=== PATIENT | male | born 1935 | race Caucasian/White ===

== ENCOUNTER 2016-10-19 23:56 | Observation (INO) | payer MEDICARE, BC ==
[2016-10-20] MEDS ORDERED: Diltiazem IV* 5 MG/ML 5 ML VIAL (for loading dose/IV Push) (25 MG) IV SLOW PU ONE (00:28)
[2016-10-20 00:50] LABS: Albumin 3.9 g/dL (3.2-5.2); BUN/Creatinine Ratio 18.5 (8-20); Calcium 8.6 mg/dL (8.6-10.3); EGFR African American 64.9 (>60); EGFR Non-African American 50.5 (>60); Globulin 3.1 g/dL (2-4); Potassium 4.1 mmol/L (3.5-5.0); Total Bilirubin 0.3 mg/dL (0.2-1.0)
[2016-10-20 00:53] LABS: Troponin I 0.02 ng/mL (<0.04)
[2016-10-20 01:03] LABS: Hematocrit 39 % (42-52); Hemoglobin 12.8 g/dl (14.0-18.0); Mean Corpuscular HGB Conc 33 g/dl (31-36); Mean Corpuscular Hemoglobin 30 pg (27-31); Mean Corpuscular Volume 92 fL (80-94); Mean Platelet Volume 8 um3 (7.4-10.4); Red Blood Count 4.23 10^6/ul (4.0-5.4); Red Cell Distribution Width 15 % (10.5-15); White Blood Count 8.2 10^3/ul (3.5-10.8)
[2016-10-20 01:21] LABS: TSH (Thyroid Stimulating Horm) 1.38 mcIU/mL (0.34-5.60)
--- NOTE | 2016-10-20 01:25 | ED ---
Jenaro Brownlee Rebecca, scribed for Gabby Subramanianuel on 10/20/16 at 0025 . Palpitations / Dysrhythmia - HPI Summary HPI Summary: Pt is an 81 y/o M who presents to ED c/o palpitations. Sx began suddenly at 2099 and have been constant since onset with mild palpitations characterized as irregular. Sx aggravated by exertion, alleviated by rest. Additionally c/o diaphoresis and oscillating BP, stating that it has been between 55 and 125 ( systolic). Denies CP, SOB, edema, syncope. Confirms incidences of prior similar episodes. Is on blood thinners. - History of Current Complaint Chief Complaint: EDDysrhythmPalp Time Seen by Provider: 10/20/16 00:11 Hx Obtained From: Patient Onset/Duration: Gradual Onset - 2099, Still Present Timing: Constant Severity Initially: Mild Severity Currently: Mild Character: Irregular Aggravating: Exertion Alleviating: Rest Associated Signs & Symptoms: Diaphoresis Related History: Similar Episode/Dx as - Prior similar episodes - Allergy/Home Medications Allergies/Adverse Reactions: Allergies Allergy/AdvReac Type Severity Reaction Status Date / Time crab Allergy Mild Rash Uncoded 10/20/16 00:01 PMH/Surg Hx/FS Hx/Imm Hx Endocrine/Hematology History: Reports: Hx Anticoagulant Therapy Denies: Hx Diabetes, Hx Thyroid Disease Cardiovascular History: Reports: Hx Aneurysm, Hx Hypercholesterolemia, Hx Hypertension, Hx Myocardial Infarction - [place] 1988 Denies: Hx Congestive Heart Failure, Hx Deep Vein Thrombosis, Hx Pacemaker/ ICD Respiratory History: Denies: Hx Asthma, Hx Chronic Obstructive Pulmonary Disease (COPD), Hx Lung Cancer GI History: Denies: Hx Gall Bladder Disease, Hx Gastrointestinal Bleed, Hx Ulcer, Hx Urosepsis History: Reports: Hx Renal Disease - Kidney cancer (removed a "very tiny part of his kidney" at the [facility], Other Problems/Disorders - renal carcinoma,2012 Denies: Hx Kidney Stones Sensory History: Reports: Hx Hearing Aid - COCHLEAR IMPLANT Neurological History: Reports: Hx Transient Ischemic Attacks (TIA) - Possible TIA., Other Neuro Impairments/Disorders - TIA 04/19/13 Denies: Hx Dementia, Hx Seizures Psychiatric History: Reports: Hx Anxiety - He is taking Wellbutrin. Denies: Hx Depression, Hx Panic Disorder, Hx Schizophrenia, Hx Bipolar Disorder, Hx Substance Abuse - Cancer History Cancer Type, Location and Year: cancer left kidney cancer - Surgical History Surgery Procedure, Year, and Place: 2011 [facility] 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 12/10/2014COCHLEAR IMPLANT- NUCLEUS FREEDOM MODEL# [id number], CHECKED WITH DR ODOM, IMPLANT NOT SAFE TO SCAN ON ANY OF OUR SCANNERS Infectious Disease History: Denies: Hx Hepatitis, Hx Human Immunodeficiency Virus (HIV), Traveled Outside the [place] in Last 30 Days - Family History Known Family History: Positive: Cardiac Disease - Social History Alcohol Use: Rare Substance Use Type: Reports: None Hx Tobacco Use: Yes Smoking Status (MU): Former Smoker Review of Systems Positive: Skin Diaphoresis, Other - Oscillating BP Positive: Palpitations. Negative: Chest Pain Negative: Shortness Of Breath Negative: Edema Negative: Syncope All Other Systems Reviewed And Are Negative: Yes Physical Exam - Summary Physical Exam Summary: Appearance: Well appearing, no pain distress Skin: warm, dry, reflects adequate perfusion Head/face: normal Eyes: EOMI, ANN MARIE ENT: normal Neck: supple, nontender Resp: CTA, breath sounds present Cardio: Pulses symm, heart rate is irregularly regular with tachycardia Musc: normal, strength/ROM intact Neuro: normal, sensory motor intact, A&Ox3 Triage Information Reviewed: Yes Vital Signs On Initial Exam: Initial Vitals Temp Pulse Resp BP Pulse Ox 97.5 F 78 18 140/70 100 10/20/16 00:01 10/20/16 00:01 10/20/16 00:01 10/20/16 00:01 10/20/16 00:01 Vital Signs Reviewed: Yes Diagnostics - Vital Signs Vital Signs Temp Pulse Resp BP Pulse Ox 10/20/16 00:01 97.5 F 78 18 140/70 100 - Laboratory Result Diagrams: 10/20/16 00:17 10/20/16 00:17 Lab Statement: Any lab studies that have been ordered have been reviewed, and results considered in the medical decision making process. - Radiology CXR Xray Interpretation: No Acute Changes Radiology Interpretation Completed By: ED Physician - EKG 0008 Cardiac Rate: Tachycardia - 103 bpm EKG Rhythm: Atrial Fibrillation EKG Interpretation: No STEMI Course/Dx - Course Assessment/Plan: Pt is an 81 y/o M who presents to ED c/o irregular palpitations , diaphoresis and oscillating BP since 2100 tonight. Aggravated by exertion, alleviated by rest. Denies edema, CP, SOB, syncope. Prior similar episodes of symptoms. EKG reveals A fib with tachycardia at a rate of 103 bpm. CXR reveals no acute findings. Troponin 0.02. Discussed care of pt with Dr. Coelho, hospitalist, who accepts pt for admission with a Dx of sick sinus syndrome. - Diagnoses Provider Diagnoses: Sick sinus syndrome - Physician Notifications Discussed Care Of Patient With: Dr. Coelho - Hospitalist, accepts pt for admission Time Discussed With Above Provider: 01:15 Discharge - Discharge Plan Condition: Good Disposition: ADMITTED TO [facility] documentation as recorded by the Jenaro hensley Rebecca accurately reflects the service I personally performed and the decisions made by , Jake Subramanian.
--- NOTE | 2016-10-20 05:03 | HP ---
HISTORY AND PHYSICAL: DATE OF ADMISSION: 10/20/16 CHIEF COMPLAINT: Lightheadedness. HISTORY OF PRESENT ILLNESS: The patient is an 81-year-old gentleman who presents to [facility] after stating at 10:30 p.m., he was downstairs in his house when he felt suddenly like he was too weak to get upstairs. He finally got up and walked upstairs, told his he was feeling weak, lightheaded, and had palpitations. His heart rate was 120, apparently he checked and it was down to 50. This had happened before when He has had atrial fibrillation. Used to be on amiodarone and metoprolol, but these were subsequently stopped about a year ago. Apparently, when the patient got here after calling their primary care physician, he was told that his heart rate was down to 40s in triage. He had no chest pain, no shortness of breath. He feels fine now. The symptoms have resolved. He thinks this happens every time he goes into atrial fibrillation. Apparently about 20 years ago, he was told to get a pacemaker here, but there was disagreement between him and the correctional officer at [facility], so he did not get the pacemaker. PAST MEDICAL HISTORY: His past medical history is significant for atrial fibrillation; gout; COPD; hyperlipidemia; coronary artery disease with an NV 30 years ago, status post 2 angioplasties with no stent placement; chronic back pain; and a cochlear implant. CURRENT MEDICATIONS: Include: 1. Vioxx 50 mg as needed. 2. Crestor 10 mg daily. 3. Atrovent inhaler 2 puffs 4 times a day. 4. Pradaxa 150 mg twice a day. 5. Aspirin 81 mg daily. 6. Allopurinol 200 mg daily. ALLERGIES: He has no known drug allergies. FAMILY HISTORY: Reviewed and noncontributory. SOCIAL HISTORY: No tobacco, quit 35 years ago. No alcohol or recreational drug use. 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 He is . His , Michelle Ruelas, is his health care proxy. He has 5 children , one adopted child. REVIEW OF SYSTEMS: A 14-point review of systems was completed with the patient. All pertinent positives and negatives are in the history of present illness, otherwise it is negative. PHYSICAL EXAMINATION GENERAL: A pleasant gentleman, lying in bed, in no acute distress. VITAL SIGNS: Temperature 97.5 degrees, heart rate was 114 and now 71 beats per minute, respiratory rate 16 breaths per minute, pulse ox 100% on room air, and blood pressure 148/64. HEENT: Normocephalic, atraumatic. Pupils are equal, round and reactive to light. Moist mucous membranes. NECK: Supple. No JVD, bruits, or palpable thyroid or lymphadenopathy. CHEST: Chest is clear to auscultation and percussion bilaterally. CARDIOVASCULAR: S1, S2 appreciated. Regular rate and rhythm. ABDOMINAL EXAM: Positive bowel sounds in all 4 quadrants. Soft, nontender, and nondistended. EXTREMITIES: No cyanosis, clubbing, or edema. NEURO: Alert and oriented x3. Hard of hearing. Moves all extremities. SKIN: No rashes or abnormalities. DIAGNOSTIC STUDIES/LAB DATA: Sodium 138, potassium 4.1, chloride 106, CO2 26, BUN 25, creatinine 1.25, and glucose 101. Troponin 0.02. White count 8.2, hemoglobin 12.8, hematocrit 39, and platelets are 216. INR 1.22. EKG shows AFib with a rapid ventricular response at 123 beats per minute. Chest x-ray shows no acute infiltrates. ASSESSMENT AND PLAN: 1. Lightheadedness with atrial fibrillation: Actually on the monitor, it appears that this has resolved and he is back in sinus and he feels fine. We will monitor him overnight. He did not wanted a pacemaker 20 years ago and does not want one now. He may not even require one. If he is stable overnight , he can likely be discharged in the morning. We will check a troponin in the morning as well and I will repeat his EKG. 2. Coronary artery disease: Stable. Continue current treatment. 3. Atrial fibrillation: See above. We will continue Pradaxa as well. 4. Gout: Stable. Continue allopurinol. 5. DVT prophylaxis: He is on Pradaxa. 6. FEN: Regular diet. 7. Code status: The patient is a full code. TIME SPENT: Over 75 minutes was spent on this H and P; more than 40 minutes of which was spent in direct [id number] contact with the patient, evaluation, physical exam, counseling, and coordination of care. CC: Paul Garcia MD* [id number]/[facility] #: [id number] [facility]
--- NOTE | 2016-10-20 07:36 | RAD ---
INDICATION: Short of breath COMPARISON: September 05, 2015 TECHNIQUE: An AP portable view obtained at 0035 hours is submitted. FINDINGS: Bones/Soft Tissues: There are no acute bony findings. Cardiomediastinal: The cardiac silhouette is mildly enlarged. Lungs: There are no infiltrates. Mild hyperinflation Pleura: There are no pleural effusions. Other: None IMPRESSION: MILD HYPERINFLATION ENLARGED CARDIAC SILHOUETTE. NO INFILTRATES.
[2016-10-20] MEDS ORDERED: Spiriva Inhaler DEVICE* 1 EACH DEVICE INH ONE (09:00)
[2016-10-20] MEDS ORDERED: Dabigatran CAP(NF) 150 MG CAP PO SCH (09:00)
[2016-10-20] MEDS ORDERED: Atorvastatin* 20 MG TAB PO SCH (09:00)
[2016-10-20] MEDS ORDERED: Aspirin Low Dose CHEW TAB* 81 MG PO SCH (09:00)
[2016-10-20] MEDS ORDERED: Allopurinol TAB* 300 MG PO SCH (09:00)
[2016-10-20] MEDS ORDERED: Tiotropium CAP.INH* CAP.INH/18 MCG INH SCH (09:00)
[2016-10-20 12:08] VITALS: BP 117/69
[2016-10-20] MEDS ORDERED: CMC: Dabigatran CAP(NF) 150 MG CAP PO SCH (17:00)
--- NOTE | 2016-10-21 00:26 | DS ---
CC: Dr. Garcia DISCHARGE SUMMARY: DATE OF ADMISSION: 10/20/16 DATE OF DISCHARGE: 10/20/16 HISTORY: This 81-year-old man presented with atrial fibrillation with a rapid ventricular rate. He has no palpitations, but at about 10:30 p.m. the evening before admission at home he felt he was to o weak to go upstairs but did manage to get upstairs but felt lightheaded. On the blood pressure cu ff, read out for a heart rate that was quite variable, sometimes very high, sometimes low. The patient has a history of atrial fibrillation in the past. He had been on amiodarone for a time. He had complained of excessive fatigue. Both his amiodarone and metoprolol were stopped. The wif e's feeling is that it was really the metoprolol that was causing his fatigue; however, the amiodaro ne was never restarted. The patient gets his cardiology care at [facility] and was last there in January 2016. The rest of the history is detailed in the dictated note. The patient spontaneously converted to normal sinus rhythm after a few hours in the hospital. He raymond s had some PACs on the monitor after that. He felt quite well. The gave a history of the patient drinking Sake, one or more drinks at dinner before his atrial fibrillation. Normally he drinks 1 glass of wine a day. He does not smoke or use excessive caffei ne. LABORATORY DATA: Unremarkable. Two troponins were normal. His potassium was 4.1. He does have william e chronic kidney disease with a creatinine of 1.35 here. This is actually lower than most recent pr evious values. FINAL DIAGNOSES: 1. Paroxysmal atrial fibrillation. 2. Gout. 3. Chronic obstructive pulmonary disease. 4. Coronary artery disease. 5. Chronic back pain. 6. Cochlear implant. DISCHARGE MEDICATIONS: 1. Aspirin 81 mg daily. 2. Allopurinol 300 mg daily. 3. Dabigatran 150 mg b.i.d. 4. Rosuvastatin 10 mg daily. 5. Sildenafil 50 mg p.r.n. 6. Ipratropium 2 puffs 4 times a day. The patient will arrange to have an appointment at the [facility] for further cardiology care within a week. [id number]/[facility] #: [id number]
== END 2016-10-20 12:48 | disposition home or self-care (01) ==
LOC: ED 23:56 → MEDTELE 10-20 02:25
PROVIDERS: ADMIT Internal Medicine; ATTEND Internal Medicine
DX: I48.0 Paroxysmal atrial fibrillation (principal); M10.9 Gout, unspecified; J44.9 Chronic obstructive pulmonary disease, unspecified; I25.10 Atherosclerotic heart disease of native coronary artery without angina pectoris; M54.9 Dorsalgia, unspecified; G89.29 Other chronic pain; Z79.899 Other long term (current) drug therapy; R53.1 Weakness; R42 Dizziness and giddiness; Z87.891 Personal history of nicotine dependence; Z79.01 Long term (current) use of anticoagulants; I10 Essential (primary) hypertension; I25.2 Old myocardial infarction
CPT/HCPCS: 36415; 71010; 80053; 83605; 83735; 83880; 84443; 84484; 85025; 85610; 85730; 93005; 94640; 99284; A9270-GY; G0378

== ENCOUNTER 2018-08-31 10:07 | Emergency (ER) | payer MEDICARE, BC ==
[2018-08-31 10:17] VITALS: BP 154/64
[2018-08-31] MEDS ORDERED: Benzoin Compound STICK TOPICAL ONE (10:26)
[2018-08-31] MEDS ORDERED: Tetan/Diph/Pertus SYR(Tdap)* 0.5 ML SYR(BOOSTRIX) use SYR IM ONE (10:26)
--- NOTE | 2018-08-31 10:31 | UC ---
Laceration HPI - HPI Summary HPI Summary: 83-year-old male presents with complaints of laceration to his left great toe. States he was getting out of the shower this morning and his foot slipped and he struck his toe on an unknown object causing a laceration. Patient is on Pradaxa but was able to control bleeding with direct pressure prior to arrival. States did not fall or hit his head and denies any other injuries. Tetanus status is unknown. - History Of Current Complaint Chief Complaint: UCLaceration Stated Complaint: TOE LAC Time Seen by Provider: 08/31/18 10:22 Hx Obtained From: Patient Pain Intensity: 0 - Allergies/Home Medications Allergies/Adverse Reactions: Allergies Allergy/AdvReac Type Severity Reaction Status Date / Time crab Allergy Mild Rash Uncoded 08/31/18 10:17 Home Medications: Home Medications PARoxetine HCL TAB* [Paxil TAB*] 1 tab PO DAILY 08/31/18 [History Confirmed ] PMH/Surg Hx/FS Hx/Imm Hx - Additional Past Medical History Additional PMH: Gout Endocrine History: Dyslipidemia Cardiovascular History: Cardiac Disease, Hypertension, Myocardial Infarction Other History Of: Anticoagulant Therapy Negative For: HIV, Hepatitis B, Hepatitis C - Surgical History Surgical History: Yes Surgery Procedure, Year, and Place: 2011 [facility] 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 12/10/2014COCHLEAR IMPLANT- NUCLEUS FREEDOM MODEL# [id number], CHECKED WITH DR ODOM, IMPLANT NOT SAFE TO SCAN ON ANY OF OUR SCANNERS - Family History Known Family History: Positive: Cardiac Disease - Social History Occupation: Retired Lives: With Family Alcohol Use: glass of wine with dinner Substance Use Type: None Smoking Status (MU): Former Smoker - Immunization History Most Recent Influenza Vaccination: THIS SEASON Most Recent Tetanus Shot: unk Most Recent Pneumonia Vaccination: THIS SEASON Review of Systems All Other Systems Reviewed And Are Negative: Yes Constitutional: Negative: Fever, Chills Skin: Positive: Other - See HPI Respiratory: Positive: Negative Cardiovascular: Positive: Negative Gastrointestinal: Positive: Negative Genitourinary: Positive: Negative Motor: Negative: Weakness Neurovascular: Negative: Decreased Sensation Musculoskeletal: Negative: Arthralgia Neurological: Positive: Negative Physical Exam - Summary Physical Exam Summary: GENERAL APPEARANCE: Well developed, well nourished, alert and cooperative, and appears to be in no acute distress. CARDIAC: Normal S1 and S2. No S3, S4 or murmurs. Rhythm is regular. There is no peripheral edema, cyanosis or pallor. Extremities are warm and well perfused. Capillary refill is less than 2 seconds. Peripheral pulses intact. LUNGS: Clear to auscultation without rales, rhonchi, wheezing or diminished breath sounds. ABDOMEN: Positive bowel sounds. Soft, nondistended, nontender. No guarding or rebound. No masses or hepatosplenomegally. MUSKULOSKELETAL: ROM intact to all extremities. No joint erythema or tenderness. Normal muscular development. SKIN: Superficial 1.5 cm linear laceration with a u-shaped flap at the distal end of the laceration to the tip of the left great toe. Triage Information Reviewed: Yes Vital Signs: Initial Vital Signs Temp 98 F 08/31/18 10:13 Pulse 72 08/31/18 10:13 Resp 16 08/31/18 10:13 BP 154/64 08/31/18 10:13 Pulse Ox 99 08/31/18 10:13 Vital Signs Reviewed: Yes Laceration Repair - Laceration Repair 1 Description: Irregular - 1.5 cm linear laceration with a u-shaped flap at the distal end of the laceration Laceration Size After Repair: Length (cm) - 1.5 cm Modified For Repair: No Irrigation With Pressure Irrigation Device: Yes Closure Material: Skin Adhesive, SteriStrips Laceration Course/Dx - Course/Dx Course Of Treatment: 83-year-old male presents with complaints of laceration to his left great toe. States he was getting out of the shower this morning and his foot slipped and he struck his toe on an unknown object causing a laceration. Patient is on Pradaxa but was able to control bleeding with direct pressure prior to arrival. States did not fall or hit his head and denies any other injuries. Tetanus status is unknown. Afebrile. Hypertensive otherwise vital signs stable. Exam was remarkable for a 1.5 cm superficial linear laceration with a U-shaped flap at the distal end of the laceration to the left great toe. The laceration was thoroughly irrigated by the RN. I repaired the laceration using Steri-Strips and a skin adhesive. Dressing was applied by the RN. Wound care, anticipatory guidance, and warning symptoms are reviewed with the patient. Verbalizes understanding and agrees with plan of care. - Differential Dx - Laceration/Wound Differental Diagnoses: Laceration - Diagnosis Provider Diagnosis: Laceration of left great toe Discharge - Sign-Out/Discharge Documenting (check all that apply): Patient Departure All imaging exams completed and their final reports reviewed: No Studies - Discharge Plan Condition: Stable Disposition: HOME Patient Education Materials: Laceration (ED), Skin Adhesive Care (ED), Steristrips (ED) Referrals: Paul Garcia MD [Primary Care Provider] - Additional Instructions: Your laceration was repaired with a combination of skin adhesive and Steri- Strips. The adhesive will slowly wear off over the next several days. Keep the adhesive dry for the next 24 hours. After 24 hours you may shower and wash your hands as ususal. Do not apply any lotions or ointments to the adhesive as this may dissolve the adhesive and cause the wound to reopen. The Steri-Strips will slowly peel up from the ends over the next few days. You may trim the ends as needed but do not pull off or you may reopen the wound. Keep the wound covered with a dressing. Change this at least once a day or anytime the dressing becomes wet or soiled. Take acetaminophen (Tylenol) according to directions as needed for pain. Your tetanus was updated today. Be sure to notify your primary care provider so they can update their records. Watch for signs of infection including fever greater than 100.5 F, severe pain not managed with with pain medicine, redness that spreads, swelling of the finger, pus draining from the wound, or any worsening of symptoms. Seek immediate medical attention if any of these occur. - Billing Disposition and Condition Condition: STABLE Disposition: Home
== END 2018-08-31 11:11 | disposition home or self-care (01) ==
LOC: UCEAST 10:07
DX: S91.112A Laceration without foreign body of left great toe without damage to nail, initial encounter (principal); W22.8XXA Striking against or struck by other objects, initial encounter; Y93.E8 Activity, other personal hygiene; Y92.002 Bathroom of unspecified non-institutional (private) residence as the place of occurrence of the external cause; Z23 Encounter for immunization; E78.5 Hyperlipidemia, unspecified; I25.2 Old myocardial infarction; I11.9 Hypertensive heart disease without heart failure; Z79.02 Long term (current) use of antithrombotics/antiplatelets; Z91.013 Allergy to seafood; Z87.891 Personal history of nicotine dependence
CPT/HCPCS: 12001; 90471; 90715; 99211; G0463

== ENCOUNTER 2018-09-08 08:00 | Emergency (ER) | payer MEDICARE, BC ==
[2018-09-08 08:16] VITALS: BP 142/88
--- NOTE | 2018-09-08 08:32 | UC ---
Truncal Trauma HPI - HPI Summary HPI Summary: 83 yo male presents with right rib pain. He tells me that about a week ago, he fell getting out of the tub and landed on his right side. During this fall he sustained a laceration to his LEFT great toe - prompting a visit to the . At that time he did not have any right side pain or complaints and was more concerned about his toe. His toe wound had steri strips applied and dermabond. has been changing the bandage daily and would like this "checked" today. No pain or drainage from the site. No fevers. Regarding his right ribs - the pain began a few days after that fall and has been persisting since. Pain in the area with taking a deep breath and with truncal/UE movement. Denies SOB or chest pain - History Of Current Complaint Chief Complaint: UCUpperExtremity Stated Complaint: RIB PAIN TOE WOUND Time Seen by Provider: 09/08/18 08:26 Hx Obtained From: Patient Severity Initially: Mild Severity Currently: Severe Pain Intensity: 10 Pain Scale Used: 0-10 Numeric - Allergies/Home Medications Allergies/Adverse Reactions: Allergies Allergy/AdvReac Type Severity Reaction Status Date / Time crab Allergy Mild Rash Uncoded 09/08/18 08:15 Home Medications: Home Medications Ibuprofen TAB* [Advil TAB*] 400 mg PO Q6H PRN 09/08/18 [History Confirmed ] Naproxen Sodium [Aleve] 440 mg PO 09/08/18 [History] PMH/Surg Hx/FS Hx/Imm Hx Endocrine History: Dyslipidemia Cardiovascular History: Cardiac Disease, Hypertension Other History Of: Anticoagulant Therapy Negative For: HIV, Hepatitis B, Hepatitis C - Surgical History Surgical History: Yes Surgery Procedure, Year, and Place: 2011 [facility] 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 12/10/2014COCHLEAR IMPLANT- NUCLEUS FREEDOM MODEL# [id number], CHECKED WITH DR ODOM, IMPLANT NOT SAFE TO SCAN ON ANY OF OUR SCANNERS - Family History Known Family History: Positive: Cardiac Disease - Social History Occupation: Retired Lives: With Family Alcohol Use: Daily Substance Use Type: None Smoking Status (MU): Former Smoker - Immunization History Most Recent Influenza Vaccination: THIS SEASON Most Recent Tetanus Shot: unk Most Recent Pneumonia Vaccination: THIS SEASON Review of Systems All Other Systems Reviewed And Are Negative: Yes Constitutional: Positive: Negative Skin: Positive: Other - Wound left great toe Respiratory: Positive: Negative Cardiovascular: Positive: Negative Gastrointestinal: Positive: Negative Genitourinary: Positive: Negative Neurovascular: Positive: Negative Musculoskeletal: Positive: Other: - Right rib pain Neurological: Positive: Negative Psychological: Positive: Negative Physical Exam - Summary Physical Exam Summary: GENERAL: NAD. WDWN. No pain distress. SKIN: Left great toe: Healing laceration on plantar aspect with dried blood. No erythema, edema, drainage, or warmth. NECK: Supple. Nontender. No lymphadenopathy. CHEST: CTAB. No r/r/w. No accessory muscle use. Breathing comfortably and in no distress. CV: Pulses intact. Cap refill <2seconds ABDOMEN: Soft. NTTP. No CVA tenderness. Bowel sounds present. No ecchymosis MSK: FROM b/l UEs, but pain in right ribs with lifting right arm. TTP at right posterior ~9th rib with faint yellow/purple ecchymosis. NEURO: Alert. PSYCH: Age appropriate behavior. Triage Information Reviewed: Yes Vital Signs: Initial Vital Signs Temp 97.7 F 09/08/18 08:06 Pulse 57 09/08/18 08:06 Resp 18 09/08/18 08:06 BP 142/88 09/08/18 08:06 Pulse Ox 99 09/08/18 08:06 Laboratory Tests 09/08/18 09:08 POC Urine Color Yellow POC Urine Clarity Clear POC Urine pH 5.0 POC Ur Specif [place] 1.025 POC Urine Protein Negative POC Ur Glucose (UA) Negative POC Urine Ketones Negative POC Urine Blood Trace-lysed A POC Urine Nitrite Negative POC Urine Bilirubin Negative POC Urine Urobilinogen 0.2 POC U Leukocyte Esteras Negative Vital Signs Reviewed: Yes Truncal Trauma Course/Dx - Course Course Of Treatment: Regarding his toe wound. The toe was cleansed with normal saline. The wound appears to be healing well and is without any sign of infection. Advised to continue to apply a bandage until fully healed. Regarding his right rib pain. XR: IMPRESSION: No fracture of the right ribs is identified. Discussed results with pt and his . Suspect rib contusion and advised to continue taking tylenol and will rx for a lidocaine patch to use. Advised to f/ u with his PCP for a recheck of his pain next week. - Differential Dx/Diagnosis Provider Diagnosis: Rib contusion, Toe laceration Discharge - Sign-Out/Discharge Documenting (check all that apply): Patient Departure All imaging exams completed and their final reports reviewed: Yes - Discharge Plan Condition: Stable Disposition: HOME Prescriptions: Lidocaine PATCH 5%* [Lidoderm 5% Patch*] 1 patch TRANSDERM DAILY PRN #10 patch PRN Reason: Pain Patient Education Materials: Acute Wound Care (ED), Rib Contusion (ED) Referrals: Paul Garcia MD [Primary Care Provider] - 2 Days Additional Instructions: If you develop a fever, shortness of breath, chest pain, new or worsening symptoms - please call your PCP or go to the ED. Your blood pressure was high at todays visit. Please see your primary provider within 4 weeks for recheck and re-evaluation. 1) Continue to wash and apply a dressing daily to the toe until well healed 2) Use the lidoderm patch as directed for the rib pain 3) I recommend you schedule an appointment with your primary doctor for a recheck of your pain within 1 week. - Billing Disposition and Condition Condition: STABLE Disposition: Home
== END 2018-09-08 09:18 | disposition home or self-care (01) ==
LOC: UCEAST 08:00
DX: S20.20XD Contusion of thorax, unspecified, subsequent encounter (principal); S91.112D Laceration without foreign body of left great toe without damage to nail, subsequent encounter; W19.XXXD Unspecified fall, subsequent encounter; E78.5 Hyperlipidemia, unspecified; I11.9 Hypertensive heart disease without heart failure; Z79.01 Long term (current) use of anticoagulants; Z91.013 Allergy to seafood; Z87.891 Personal history of nicotine dependence
CPT/HCPCS: 81003; 99212; G0463

== ENCOUNTER 2021-02-04 04:56 | Observation (INO) ==
[2021-02-04] MEDS ORDERED: NS 0.9% 1000 ml BAG 1,000 ML IV ONE (08:09)
[2021-02-04 09:00] LABS: Hematocrit 33 % (42-52); Hemoglobin 10.9 g/dL (14.0-18.0); Mean Corpuscular HGB Conc 34 g/dL (31-36); Mean Corpuscular Hemoglobin 32 pg (27-31); Mean Corpuscular Volume 94 fL (80-94); Mean Platelet Volume 8.8 fL (7.4-10.4); Platelet Count 135 10^3/uL (150-450); Red Blood Count 3.48 10^6 /uL (4.18-5.48); Red Cell Distribution Width 16 % (10-15)
[2021-02-04 09:01] LABS: Venous Bicarbonate HCO3 24.7 mmol/L (24-28)
[2021-02-04 09:09] LABS: ABS Basophils 0.1 10^3/ul (0-0.2); ABS Eosinophils 0.1 10^3/ul (0-0.6); ABS Lymphocytes 1.1 10^3/ul (1.0-4.8); ABS Monocytes 0.5 10^3/ul (0-0.8); ABS Neutrophils 7.2 10^3/ul (1.5-7.7); Eosinophil % 1.4 %; Lymphocyte % 12.5 %
[2021-02-04 09:16] LABS: Activated Partial Thrombo Time 56.5 seconds (26.0-38.0); INR 1.53 (0.86-1.15)
[2021-02-04 09:23] LABS: Albumin 3.9 g/dL (3.2-5.2); Albumin/Globulin Ratio 1.3 (1-3); C Reactive Protein 8.37 mg/L (<8.01); Calcium 8.4 mg/dL (8.6-10.3); EGFR African American 56.1 (>60); EGFR Non-African American 46.4 (>60); Globulin 3.1 g/dL (2-4); Potassium 4.6 mmol/L (3.5-5.0); Total Bilirubin 0.7 mg/dL (0.2-1.0); Troponin I 0.01 ng/mL (<0.03)
[2021-02-04 09:24] LABS: Influenza A Molecular Negative (Negative); Influenza B Molecular Negative (Negative)
[2021-02-04 09:44] LABS: Ferritin 35.6 ng/mL (24-336)
[2021-02-04] MEDS ORDERED: cefTRIAXone 1 gm/50 mL NS BAG 1 GM/50 ML BAG IV ONE (10:06)
[2021-02-04] MEDS ORDERED: DOXYcycline 100 MG in NS 0.9% 250 ml 250 ML IVPB ONE (10:07)
[2021-02-04 11:51] LABS: Rapid COVID-19 Molecular Undetected (Undetected)
[2021-02-04] MEDS ORDERED: Azithromycin 500 mg/250 ml NS 500 MG/250 ML BAG IVPB SCH (14:00)
[2021-02-04] MEDS: Dabigatran 150 mg CAP (NF) PO SCH (20:49)
[2021-02-05] MEDS: Dabigatran 150 mg CAP (NF) PO SCH (09:08)
[2021-02-05 09:33] VITALS: BP 126/85
[2021-02-05 10:45] LABS: ABS Eosinophils 0.2 10^3/ul (0-0.6); ABS Lymphocytes 1.2 10^3/ul (1.0-4.8); ABS Monocytes 0.5 10^3/ul (0-0.8); ABS Neutrophils 4.4 10^3/ul (1.5-7.7); Eosinophil % 3.7 %; Hematocrit 32 % (42-52); Hemoglobin 10.7 g/dL (14.0-18.0); Lymphocyte % 18.4 %; Mean Corpuscular HGB Conc 33 g/dL (31-36); Mean Corpuscular Hemoglobin 31 pg (27-31); Mean Corpuscular Volume 95 fL (80-94); Mean Platelet Volume 8.4 fL (7.4-10.4); Platelet Count 119 10^3/uL (150-450); Red Blood Count 3.39 10^6 /uL (4.18-5.48); Red Cell Distribution Width 17 % (10-15); White Blood Count 6.4 10^3/uL (3.5-10.8)
[2021-02-05] MEDS ORDERED: cefTRIAXone 1 gm/50 mL NS BAG 1 GM/50 ML BAG IVPB SCH (11:00)
[2021-02-05 11:07] LABS: Calcium 8.6 mg/dL (8.6-10.3); EGFR African American 56.6 (>60); EGFR Non-African American 46.8 (>60); Potassium 4.2 mmol/L (3.5-5.0)
== END 2021-02-05 14:50 | disposition home or self-care (01) ==
LOC: MED 04:56 → ED 04:56 → MED 15:15
PROVIDERS: ADMIT Internal Medicine; ATTEND Internal Medicine

== ENCOUNTER 2021-11-02 20:22 | Inpatient (IN) ==
[2021-11-02] MEDS ORDERED: Lactated Ringers 1000 ml BAG 1,000 ML IV ONE (21:52)
[2021-11-02] MEDS ORDERED: Cefepime 2 GM in Dextrose 2 GM/50 ML BAG IV ONE (21:59)
[2021-11-02 22:12] LABS: ABS Eosinophils 0.2 10^3/ul (0-0.6); ABS Lymphocytes 0.9 10^3/ul (1.0-4.8); ABS Monocytes 0.5 10^3/ul (0-0.8); ABS Neutrophils 8.1 10^3/ul (1.5-7.7); Eosinophil % 1.9 %; Hematocrit 35 % (42-52); Hemoglobin 11.1 g/dL (14.0-18.0); Mean Corpuscular HGB Conc 32 g/dL (31-36); Mean Corpuscular Hemoglobin 30 pg (27-31); Mean Corpuscular Volume 92 fL (80-94); Platelet Count 214 10^3/uL (150-450); Red Blood Count 3.74 10^6 /uL (4.18-5.48); Red Cell Distribution Width 18 % (10-15); White Blood Count 9.8 10^3/uL (3.5-10.8)
[2021-11-02 22:24] LABS: Activated Partial Thrombo Time 36.3 seconds (26.0-38.0); INR 1.68 (0.86-1.15)
[2021-11-02 22:38] LABS: Albumin 4.3 g/dL (3.2-5.2); Albumin/Globulin Ratio 1.3 (1-3); C Reactive Protein 14.56 mg/L (<8.01); Calcium 8.6 mg/dL (8.6-10.3); Globulin 3.3 g/dL (2-4); Potassium 4.5 mmol/L (3.5-5.0); Total Bilirubin 0.7 mg/dL (0.2-1.0); Total Protein 7.6 g/dL (6.4-8.9); eGFR CKD-EPI 39.4 (>60)
[2021-11-02 23:49] LABS: High Sensitivity Troponin 1 Hr 10 pg/mL (<20)
[2021-11-03 00:09] LABS: Urine Appearance Clear; Urine Color Yellow; Urine Specific Gravity 1.019 (1.002-1.030); Urine Urobilinogen Positive (Negative); Urine pH 5 (5-9)
[2021-11-03 00:10] LABS: Urine Bilirubin Negative (Negative); Urine Blood Negative (Negative); Urine Glucose Negative (Negative); Urine Ketones Negative (Negative); Urine Nitrite Negative (Negative); Urine Protein 1+(30 mg/dL) (Negative)
[2021-11-03] MEDS ORDERED: Vancomycin 1,000 MG in NS 0.9% 250 ml 250 ML IVPB ONE (00:24)
[2021-11-03 00:37] LABS: Urine Bacteria Absent (Absent); Urine Red Blood Cell Trace(0-2/hpf) (Absent); Urine White Blood Cell Absent (Absent)
[2021-11-03] MEDS ORDERED: Ondansetron 4 mg VIAL 2 MG/ML 2 ml VIAL IV PRN (01:35)
[2021-11-03] MEDS ORDERED: Vancomycin per Pharmacy 1 EA NOTE FOLLOW UP SCH (08:00)
[2021-11-03] MEDS ORDERED: cefTRIAXone 1 gm/50 mL D5W 1 GM/50 ML BAG IV SCH (08:00)
[2021-11-03 08:38] LABS: ABS Eosinophils 0.2 10^3/ul (0-0.6); ABS Lymphocytes 1.3 10^3/ul (1.0-4.8); ABS Monocytes 0.6 10^3/ul (0-0.8); ABS Neutrophils 5.1 10^3/ul (1.5-7.7); Eosinophil % 3.2 %; Hematocrit 29 % (42-52); Hemoglobin 9.5 g/dL (14.0-18.0); Lymphocyte % 18.4 %; Mean Corpuscular HGB Conc 33 g/dL (31-36); Mean Corpuscular Hemoglobin 31 pg (27-31); Mean Corpuscular Volume 92 fL (80-94); Mean Platelet Volume 7.8 fL (7.4-10.4); Platelet Count 170 10^3/uL (150-450); Red Blood Count 3.11 10^6 /uL (4.18-5.48); Red Cell Distribution Width 18 % (10-15); White Blood Count 7.3 10^3/uL (3.5-10.8)
[2021-11-03 09:21] LABS: Calcium 8.1 mg/dL (8.6-10.3); Potassium 4.1 mmol/L (3.5-5.0); Uric Acid 4.7 mg/dL (4.4-7.6); eGFR CKD-EPI 48.8 (>60)
[2021-11-03] MEDS: CMC:Nebivolol 2.5 mg TAB (NF) PO SCH (10:49)
[2021-11-04] MEDS ORDERED: Vancomycin 1000 MG in NS 0.9% 250 ML IVPB SCH (06:00)
[2021-11-04 06:06] LABS: Hematocrit 29 % (42-52); Hemoglobin 9.3 g/dL (14.0-18.0); Mean Corpuscular HGB Conc 32 g/dL (31-36); Mean Corpuscular Hemoglobin 30 pg (27-31); Mean Corpuscular Volume 92 fL (80-94); Platelet Count 165 10^3/uL (150-450); Red Blood Count 3.16 10^6 /uL (4.18-5.48); Red Cell Distribution Width 18 % (10-15); White Blood Count 5.7 10^3/uL (3.5-10.8)
[2021-11-04 06:19] LABS: C Reactive Protein 18.26 mg/L (<8.01); Calcium 8.2 mg/dL (8.6-10.3); Magnesium 2.3 mg/dL (1.9-2.7); Potassium 4.6 mmol/L (3.5-5.0); eGFR CKD-EPI 46.3 (>60)
[2021-11-04] MEDS: CMC:Nebivolol 2.5 mg TAB (NF) PO SCH (08:26)
[2021-11-04] MEDS ORDERED: cefTRIAXone 1 gm/50 mL D5W 1 GM/50 ML BAG IV SCH (09:00)
[2021-11-04] MEDS ORDERED: Magnesium Hydroxide LIQ 30 ML UDC PO PRN (12:40)
[2021-11-04] MEDS ORDERED: Senna TAB 8.6 mg TAB PO PRN (12:40)
[2021-11-04] MEDS ORDERED: Polyethylene Glycol 3350 17 GM PACKET PO PRN (12:40)
[2021-11-04] MEDS: cefTRIAXone 1 gm/50 mL D5W 1 GM/50 ML BAG IV SCH (13:24)
[2021-11-05] MEDS ORDERED: Vancomycin Trough Check NOTE FOLLOW UP ONE (05:30)
[2021-11-05 06:46] LABS: Hematocrit 29 % (42-52); Hemoglobin 9.7 g/dL (14.0-18.0); Mean Corpuscular HGB Conc 34 g/dL (31-36); Mean Corpuscular Hemoglobin 31 pg (27-31); Mean Corpuscular Volume 91 fL (80-94); Mean Platelet Volume 8.2 fL (7.4-10.4); Platelet Count 170 10^3/uL (150-450); Red Blood Count 3.16 10^6 /uL (4.18-5.48); Red Cell Distribution Width 18 % (10-15); White Blood Count 6.7 10^3/uL (3.5-10.8)
[2021-11-05 06:57] LABS: Calcium 8.6 mg/dL (8.6-10.3); Magnesium 2.4 mg/dL (1.9-2.7); Potassium 4.7 mmol/L (3.5-5.0); eGFR CKD-EPI 56.5 (>60)
[2021-11-05] MEDS: CMC:Nebivolol 2.5 mg TAB (NF) PO SCH (08:42)
[2021-11-05] MEDS: cefTRIAXone 1 gm/50 mL D5W 1 GM/50 ML BAG IV SCH (12:25)
[2021-11-05 13:05] VITALS: BP 131/78
== END 2021-11-05 14:48 | disposition home or self-care (01) | DRG 602 ==
LOC: ED 20:22 → EDHOLD 11-03 01:35 → SUATTDRO 11-03 01:35 → EDHOLD 11-03 07:40 → MEDTELE 11-03 08:19
PROVIDERS: ADMIT Internal Medicine; ATTEND Internal Medicine